=== PATIENT | male | born 1955 | race Caucasian/White ===

== ENCOUNTER 2020-07-05 16:09 | Emergency (ER) | payer OTHER, SELFPAY ==
[2020-07-05 16:10] VITALS: BP 126/74; PULSE 106; RESP 20; TEMP 36.7; O2SAT 96; BMI 41.8
--- NOTE | 2020-07-05 16:38 | ED.VISSUMM ---
- ER Visit Summary Date of Service: 07/05/20 Chief Complaint: Altered mental status History of Present Illness: The patient is a 65 M who [place] over on the free[place] erratic driving. Patient has no complaints. EMS reports his blood sugar was normal. They also report that a bystander said that he is a known heavy alcohol user. Physical Examination: Patient is oriented to person and place. Mildly agitated, but redirectable. Head and neck atraumatic. Cranial nerves grossly intact. Heart regular. Lungs clear. Abdomen soft. Moves all extremities Test Results: Labs pending Emergency Department Course and Treatment: CBC, CMP unremarkable. Alcohol level 335. Patient was observed. He was gradually improved. His daughter was coming to pick him up and the plan was to discharge him. Patient complains of a foreign body in his mid back skin. He says this has been there for 25 years. He thinks this is a piece of a broken mirror. 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 There is no pus, redness, warmth, or bleeding. There is an underlying area of suspected foreign body. Given that this is a chronic issue for 25 years and risk of complications, I will refer him to outpatient follow-up with surgery. Dr. Rodriguez was on-call. Treatment Plan: As above Disposition: Discharge Impression: Intoxication by alcohol This note was generated with [employer] dictation software. It may contain incorrect words, spelling, and punctuation that were not noted in review of the chart prior to signing
[2020-07-05 16:51] LABS: Absolute Neutrophil Count 2.7 X10^3/uL (2.0-7.7); Basophil# 0.06 X10^3/uL; Basophil% 0.9 % (0-1); Eosinophil# 0.47 X10^3/uL; Hematocrit 41.1 % (40-54); Hemoglobin 14.1 g/dL (13.0-16.5); Lymphocyte % 44.8 % (19-41); Mean Corp Hgb Conc 34.3 g/dL (32-36); Mean Corpuscular Hgb 32.3 pg (27.0-32.0); Mean Corpuscular Volume 94.3 fL (80-94); Mean Platelet Vol. 8.9 fl (6.2-12.0); Monocyte# 0.42 X10^3/uL; Monocyte% 6.3 % (0-10); NRBC Flagged by Analyzer 0 % (0-5); Neutrophil # 2.71 X10^3/uL (2.7-7.7); Neutrophil % 40.4 % (47-70); Platelet Count 256 K/mm3 (150-450); RBC Distribution Width CV 13.9 % (11.6-14.6); RBC Distribution Width SD 47.8 fl (35.1-43.9); Red Blood Count 4.36 M/mm3 (4.6-6.2); White Blood Count 6.7 K/mm3 (4.4-11.0)
[2020-07-05 17:20] LABS: ALB/GLOB Ratio 1.2 RATIO (0.9-2.4); AST(SGOT) 38 U/L (15-37); Alanine Aminotransfer ALT/SGPT 43 U/L (16-61); Alkaline Phosphatase 103 U/L (45-117); Anion Gap 7 (5-15); BUN 17 mg/dL (7-18); BUN/Creat Ratio 14.7 RATIO (10-20); Calcium,Total 8.7 mg/dL (8.5-10.1); Chloride 106 mmol/L (98-107); Creatinine, Serum 1.16 mg/dL (0.70-1.30); EST Glomerular Filtration Rate 68 mL/min (>60); Est Glom Filt Rate - Afr Amer 82 mL/min (>60); Estimated Creatinine Clearance 75.78 ml/min; Globulin 3.4 g/dL (2.2-4.2); Glucose 108 mg/dL (74-106); Potassium 3.6 mmol/L (3.5-5.1); Protein, Total 7.4 g/dL (6.4-8.2); Sodium Level 139 mmol/L (136-145)
[2020-07-05 17:30] VITALS: BP 126/61; PULSE 91; RESP 18; O2SAT 98
--- NOTE | 2020-07-05 17:51 | ED.RN ---
Pt requesting to leave at this time. Per ER MD pt not to leave without an adult to take him home. This was explained to the patient. Pt threatening to walk out. Resource officer to bedside to discuss plan of care with patient.
--- NOTE | 2020-07-05 18:06 | ED.DEP ---
ED Disposition - Plan for ED Patient: Instructions: ED INTOXICATION Alcohol Referrals: Amalia Mancini [Other] Erendira Rodriguez MD [STAFF PHYSICIAN] -
[2020-07-05 19:00] VITALS: BP 120/79; PULSE 89; RESP 18
== END 2020-07-05 19:22 | disposition home or self-care (01) ==
PROVIDERS: Emergency Provider Emergency Medicine
DX: F10.129 Alcohol abuse with intoxication, unspecified (principal); Y90.9 Presence of alcohol in blood, level not specified; S21.201A Unspecified open wound of right back wall of thorax without penetration into thoracic cavity, initial encounter; X58.XXXA Exposure to other specified factors, initial encounter; Y93.9 Activity, unspecified; Y92.9 Unspecified place or not applicable; I10 Essential (primary) hypertension; E78.00 Pure hypercholesterolemia, unspecified; Z79.899 Other long term (current) drug therapy
CPT/HCPCS: 80053; 80320; 85025; 99285; A4216; G0480